=== PATIENT | female | born 1985 | race Caucasian/White ===

== ENCOUNTER 2018-03-25 13:27 | Emergency (ER) | payer OTHER ==
--- NOTE | 2018-03-25 13:50 | EDM.PDOC ---
ED HPI GENERAL MEDICAL PROBLEM - General Chief Complaint: Trauma Stated Complaint: fall from horse Time Seen by Provider: 03/25/18 13:35 Source of Information: Reports: Patient History Limitations: Reports: No Limitations - History of Present Illness INITIAL COMMENTS - FREE TEXT/NARRATIVE: Patient is a 33-year-old female who was dumped from her horse twice on the first time the horse stepped on her left mid tib-fib patient was able to get up and find her horse and dragged him back to the trailer patient went back and got on the horse the course got scared and laid against on the side this time she had the [place] around her hand caught the finger and pulled causing a small laceration left third finger distal and Onset: Today Duration: Hour(s):, Constant Location: Reports: Upper Extremity, Left, Lower Extremity, Left Quality: Reports: Ache, Burning (Burning in the third finger achy pressure throbbing left leg), Pressure, Throbbing Severity: Moderate Improves with: Reports: Cold Therapy, Medication Worsens with: Reports: None Context: Reports: Trauma Associated Symptoms: Reports: No Other Symptoms Treatments INSTITUTION LIBRARIAN: Reports: NSAIDS - Related Data Allergies Allergy/AdvReac Type Severity Reaction Status Date / Time acetaminophen [From [place]] Allergy Nausea Verified 03/25/18 13:37 hydrocodone [From [place]] Allergy Nausea Verified 03/25/18 13:37 ondansetron [From [place]] Allergy severe Verified 03/25/18 13:37 headache Home Meds: Home Meds Losartan [Cozaar] 100 mg PO DAILY 03/25/18 [History] Sertraline [Zoloft] 100 mg PO DAILY 03/25/18 [History] Topiramate [Topamax] 100 mg PO DAILY 03/25/18 [History] Review of Systems - Review of Systems Review Of Systems: See Below Constitutional: Reports: No Symptoms Eyes: Reports: No Symptoms Ears: Reports: No Symptoms Nose: Reports: No Symptoms Mouth/Throat: Reports: No Symptoms Respiratory: Reports: No Symptoms Cardiovascular: Reports: No Symptoms GI/Abdominal: Reports: No Symptoms Genitourinary: Reports: No Symptoms Musculoskeletal: Reports: Hand Pain, Leg Pain Skin: Reports: Bruising Neurological: Reports: No Symptoms ED EXAM, GENERAL - Physical Exam Exam: See Below Exam Limited By: No Limitations General Appearance: Alert, WD/WN, No Apparent Distress Ears: Normal External Exam, Normal Canal, Hearing Grossly Normal, Normal TMs Ear Exam: Bilateral Ear: Auricle Normal, Canal Normal, TM normal Nose: Normal Inspection, Normal Mucosa, No Blood Throat/Mouth: Normal Inspection, Normal Lips, Normal Teeth, Normal Gums, Normal Oropharynx, Normal Voice, No Airway Compromise Head: Atraumatic, Normocephalic Neck: Normal Inspection, Supple, Non-Tender, Full Range of Motion Respiratory/Chest: No Respiratory Distress, Lungs Clear, Normal Breath Sounds, No Accessory Muscle Use, Chest Non-Tender Cardiovascular: Normal Peripheral Pulses, Regular Rate, Rhythm, No Edema, No Gallop, No JVD, No Murmur, No Rub GI/Abdominal: Normal Bowel Sounds, Soft, Non-Tender, No Organomegaly, No Distention, No Abnormal Bruit, No Mass (Female) Exam: Normal External Exam, Normal Speculum Exam, Normal Bimanual Exam Extremities: Other (Ecchymosis left leg starting) Neurological: Alert, Oriented, CN II-XII Intact, Normal Cognition, Normal Gait, Normal Reflexes, No Motor/Sensory Deficits, Other (Patient was worrying I Kamila at that time of her fall did not lose consciousness and remembers events ) Psychiatric: Normal Affect, Normal Mood Skin Exam: Ecchymosis (Left fourth finger) Lymphatic: No Adenopathy Course - Orders/Labs/Meds Orders: Active Orders 24 hr Category Date Time Status Tibia Fibula Lt [CR] Stat Exams 03/25/18 13:37 Ordered Departure - Departure Time of Disposition: 14:34 Disposition: DC/Tfer to Acute Hospital 02 Condition: Fair Clinical Impression: Compartment syndrome of left lower extremity - Discharge Information Referrals: PCP,Not In Area [Primary Care Provider] - Care Plan Goals: At this time patient will be sent to the emergency room at [place] to be seen by orthopedics possible compartment syndrome of the left lower extremity spoke with Dr. Zhou who agreed to accept her - My Orders Last 24 Hours: My Active Orders 03/25/18 13:37 Tibia Fibula Lt [CR] Stat - Assessment/Plan Last 24 Hours: My Active Orders 03/25/18 13:37 Tibia Fibula Lt [CR] Stat
[2018-03-25] MEDS ORDERED: fentaNYL 100 MCG/2 ML SDV IVPUSH ONE ×2 (14:30→14:31)
[2018-03-25] MEDS ORDERED: Sodium Chloride 0.9% 10 ML Syringe FLUSH PRN (14:31)
[2018-03-25] MEDS ORDERED: SODIUM CHLORIDE 0.9% IV ONE (14:33)
[2018-03-25] MEDS ORDERED: PROMETHAZINE IV ONE (14:33)
[2018-03-25 14:37] LABS: CHLORIDE,CL 110 mmol/L (98-107); SODIUM,NA 142 mmol/L (136-145)
== END 2018-03-25 15:20 ==
LOC: LL.ED 13:27
DX: T79.A22A Traumatic compartment syndrome of left lower extremity, initial encounter (principal); Z88.8 Allergy status to other drugs, medicaments and biological substances; Z79.899 Other long term (current) drug therapy; V80.010A Animal-rider injured by fall from or being thrown from horse in noncollision accident, initial encounter
CPT/HCPCS: 36415; 73140; 73590; 80048; 82550; 85025; 96374; 96375; 99285; J2550; J3010; J7050